=== PATIENT | male | born 1970 | race Caucasian/White ===

== ENCOUNTER 2018-06-29 18:51 | Emergency (ER) | payer SELFPAY ==
[~2018-06-29] VITALS: Ht 162.6 cm; Wt 65.8 kg
[2018-06-29 18:58] VITALS: BP 139/98
--- NOTE | 2018-06-29 19:48 | NUR ---
Patient tranasferred to ED lobby to wait for an available bed.
--- NOTE | 2018-06-29 20:55 | NUR ---
Reassessed. No new complaints or changes.
--- NOTE | 2018-06-29 21:50 | NUR ---
Dr. Knott evaluating patient.
[2018-06-29 22:00] VITALS: BP 133/78
--- NOTE | 2018-06-29 22:00 | NUR ---
Patient discharged with v/s stable. Written and verbal after care instructions given and explained. Patient verbalized understanding. Ambulatory with steady gait. All questions addressed prior to discharge. Advised to follow up with PMD.
== END 2018-06-29 22:00 | disposition home or self-care (01) ==
LOC: MED 18:51
DX: F15.10 Other stimulant abuse, uncomplicated (principal); F41.9 Anxiety disorder, unspecified
CPT/HCPCS: 99283